=== PATIENT | female | born 1985 | race Caucasian/White ===

== ENCOUNTER 2019-08-01 07:10 | Emergency (ER) | payer MEDICAID, SELFPAY ==
[2019-08-01] MEDS ORDERED: Azithromycin 250 MG TAB ONE (07:28)
== END 2019-08-01 07:50 | disposition home or self-care (01) ==
LOC: MADERS 07:10
DX: O99.512 Diseases of the respiratory system complicating pregnancy, second trimester (principal); J18.9 Pneumonia, unspecified organism; Z3A.18 18 weeks gestation of pregnancy
CPT/HCPCS: 99283

== ENCOUNTER 2020-09-08 13:19 | Emergency (ER) | payer MEDICAID, OTHER | END 2020-09-08 14:20 | disposition home or self-care (01) | LOC: MADERS 13:19 | DX: K04.7 Periapical abscess without sinus (principal); K03.81 Cracked tooth; K02.9 Dental caries, unspecified; E78.5 Hyperlipidemia, unspecified; E78.00 Pure hypercholesterolemia, unspecified; F17.210 Nicotine dependence, cigarettes, uncomplicated; Z71.6 Tobacco abuse counseling | CPT/HCPCS: 99406 ==

== ENCOUNTER 2021-07-04 10:28 | Emergency (ER) | payer OTHER | END 2021-07-04 12:25 | disposition home or self-care (01) | LOC: MADERS 10:28 | DX: J35.8 Other chronic diseases of tonsils and adenoids (principal); J06.9 Acute upper respiratory infection, unspecified; H65.92 Unspecified nonsuppurative otitis media, left ear; E78.5 Hyperlipidemia, unspecified; E78.00 Pure hypercholesterolemia, unspecified; F17.210 Nicotine dependence, cigarettes, uncomplicated | CPT/HCPCS: 87081; 87430; 99283 ==